=== PATIENT | female | born 1950 | race Caucasian/White ===

== ENCOUNTER → 2025-02-05 | Outpatient (REF) | payer MEDICARE, SELFPAY ==
[2025-02-05 07:51] LABS: Mucous, Urine 0 SEEN /hpf (<or=2+); Red Blood Cells-Urine 0 SEEN /hpf (0-5)
[2025-02-05 08:40] LABS: Anion Gap 12 (5-15); BUN 14 mg/dL (4-19); BUN/Creat Ratio 18.6 RATIO (10-20); Calcium,Total 8.9 mg/dL (7.6-11.0); Carbon Dioxide 18.7 mmol/L (21.0-32.0); Chloride 106 mmol/L (98-108); Glucose 81 mg/dL (70-99); Potassium 5.2 mmol/L (3.3-5.1)
[2025-02-05 09:02] LABS: Color, Urine Amber (Yellow); Glucose, Dipstick Normal (Normal); Ketone-Dipstick Negative (Negative); Leukocyte Esterase-Dipstick 500 /ul (Negative); Nitrite-Dipstick Positive (Negative); Occult Blood-Urine Negative /ul (Negative); Protein-Dipstick 15 mg/dl (Negative); Specific Gravity, Urine 1.005 (1.002-1.030)
[2025-02-05 09:06] LABS: Urine Bilirubin Dipstick 3 mg/dL (Negative)
[2025-02-05 09:15] LABS: Squamous Epithelial Cells - UA 0-5 SEEN /hpf (5-10)
== END ==
LOC: OLS.SANC 06:30
DX: I10 Essential (primary) hypertension (principal); J44.9 Chronic obstructive pulmonary disease, unspecified
CPT/HCPCS: 36415; 80048; 81001; 87086; 87088